=== PATIENT | female | born 1955 | race Hispanic/Latino ===

== ENCOUNTER 2020-06-02 10:59 | Outpatient (CLI) | payer MEDICARE ==
--- NOTE | 2020-06-02 11:51 | Ultrasound Report ---
EXAMINATION: Right Complete Breast Ultrasound, 06/02/2020 INDICATION: Patient presents for evaluation of right breast pain. COMPARISON: Prior right diagnostic mammogram 04/01/2020 and bilateral mammogram 09/11/2019 FINDINGS: Complete sonographic evlauation of all 4 quadrants and retroareolar region was performed. Complete ultrasound of the right breast reveals normal fibroglandular tissue. No suspicious cystic or solid lesion identified. Morphologically normal lymph nodes are seen in the right axilla. IMPRESSION: 1. No sonographic abnormality to account for right breast pain, therefore clinical correlation is rec ommended. Follow up recommendation: Back to schedule. BI-RADS Category 2: Benign. Signer Name: Madelin Ramirez MD Signed: 06/02/2020 11:47 AM Workstation Name: [id number]
== END 2020-06-02 11:00 | disposition home or self-care (01) ==
LOC: SPVWC 10:59
PROVIDERS: ATTEND Surgery
DX: N64.4 Mastodynia (principal)

== ENCOUNTER 2020-09-07 10:30 | Outpatient (CLI) | payer MEDICARE ==
--- NOTE | 2020-09-07 11:23 | Mammography Report ---
DIGITAL SCREENING MAMMOGRAM WITH CAD, 09/07/2020 CLINICAL INFORMATION / INDICATION: Routine screening mammography. TECHNIQUE: Digital bilateral 2D mammography was obtained in the craniocaudal and mediolateral obliqu e projections. This examination was interpreted with the benefit of Computer-Aided Detection analysis . COMPARISON: 08/27/2017, 04/01/2020 FINDINGS: Breast Density: There are scattered areas of fibroglandular density. No dominant mass, suspicious calcifications, or architectural distortion in either breast. No interval change. IMPRESSION: No mammographic evidence of malignancy. Follow up recommendation: Routine yearly BI-RADS Category 1: Negative. A "normal" or negative report should not discourage follow up or biopsy of a clinically significant f inding. A written summary of these findings will be mailed to the patient. The patient will be entered into a mammography reporting system which will generate a reminder letter for the patient's next appointmen t at the appropriate interval. The [employer] recommends yearly mammograms starting at age 40 and continuing as l dash as a woman is in good health. Breast MRI is recommended for women with an approximate 20-25% or greater lifetime risk of breast cancer, including women with a strong family history of breast or ova sabino cancer or who have been treated for Hodgkin's disease. Signer Name: Deidre Singletary MD Signed: 09/07/2020 11:18 AM Workstation Name: [id number]
== END 2020-09-07 10:31 | disposition home or self-care (01) ==
LOC: SPVWC 10:30
PROVIDERS: ATTEND Surgery
DX: Z12.31 Encounter for screening mammogram for malignant neoplasm of breast (principal)
CPT/HCPCS: 77067